=== PATIENT | female | born 1980 | race Caucasian/White ===

== ENCOUNTER 2025-06-28 11:22 | Day surgery (SDC) | payer OTHER, SELFPAY ==
--- NOTE | 2025-06-24 17:10 | EXP.HP ---
History of Present Illness *Admission Date: 06/28/25 *History of present illness: Mrs. Rao is a 44-year-old female who is here for diagnostic EGD. She has had nausea postprandially with loss of appetite. She also has heartburn and reflux daily and is on omeprazole. She has been followed previously with Dr. Polly Stover MD ([facility]) and Dr. Guille Valencia (colorectal surgery). She had seen me about 20 years ago. The patient does state that she had acute appendicitis in 2020 and at time of surgery, she had colonic ischemia/necrosis and bowel and underwent subtotal colectomy. She initially had diarrhea but now she reports constipation and bloating. She did have a CT scan at [facility] which showed retained stool. The examination is deemed medically necessary for diagnostic EGD. The patient has been seen, interviewed and examined prior to the procedure by both myself and the anesthesia provider. [facility] Disclaimer: The information contained in this section may have been updated after the patient was seen, as this information can be updated by other users. Medical History TMJ (dislocation of temporomandibular joint) High blood pressure Surgical History History of jaw surgery History of partial colectomy History of appendectomy Family History Grandfather No problems noted. Father Cancer Social History (Updated 06/28/25 @ 12:09 by Linda Sims CRNA) Smoking Status: Never smoker alcohol intake: never substance use type: unknown current occupational status: other Travel in the last 8 weeks?: None Have you lived/traveled outside [place] in past 30 days?: No Contact w/someone who lives/traveled outside [place] past 30 days?: No Exposure to someone with infectious disease in past 14 days?: No Do you have a fever (greater than 100.4 F or 38 C)?: No Have you tested positive for COVID-19?: No Exposed to someone with COVID-19 in past 14 days?: No Do you have a sore throat?: No Do you have a cough?: No Do you have any weakness?: No Do you have any diarrhea?: No Are you experiencing any unusual bleeding?: No Do you have any muscle aches/pain?: No Do you have any abdominal pain?: No Are you experiencing loss of taste or smell?: No Review of Systems Review of Systems Review of systems (narrative): Negative *Cardiovascular Comments: Negative *Gastrointestinal Comments: Negative *Genitourinary Comments: Negative *Musculoskeletal Comments: Negative *Neurologic Comments: Negative Meds Home Medications and Allergies Home Medications ?Medication ?Instructions ?Recorded ?Confirmed ?Type Saccharomyces boulardii 250 mg 250 mg PO BID 06/08/25 06/08/25 History capsule (Daily Probiotic (S. boulardii)) cholecalciferol (vitamin D3) 10 20 mcg PO DAILY 06/08/25 06/08/25 History mcg (400 unit) capsule diclofenac sodium 75 mg 75 mg PO DAILY 06/08/25 06/08/25 History tablet,delayed release dicyclomine 10 mg capsule 10 mg PO ONCE PRN Diarrhea 06/08/25 06/08/25 History escitalopram oxalate 20 mg tablet 20 mg PO DAILY 06/08/25 06/08/25 History losartan 25 mg tablet 25 mg PO DAILY 06/08/25 06/08/25 History metoprolol succinate 50 mg 50 mg PO ONCE 06/08/25 06/08/25 History tablet,extended release 24 hr norgestimate 0.18 mg/0.215mg/0.25 1 tab PO DAILY 06/08/25 06/08/25 History mg-ethinyl estradiol 0.025 mg tablet ([id number]) omeprazole 40 mg capsule,delayed 40 mg PO DAILY 06/08/25 06/08/25 History release ondansetron HCl 8 mg tablet 8 mg PO BID 06/08/25 06/08/25 History ropinirole 0.5 mg tablet 0.5 mg PO HS 06/08/25 06/08/25 History triamterene 37.5 1 tab PO ONCE 06/08/25 06/08/25 History mg-hydrochlorothiazide 25 mg tablet ursodiol 250 mg tablet 250 mg PO BID 06/08/25 06/08/25 History New Prescriptions to Start Prescriptions: Allergies Allergy/AdvReac Type Severity Reaction Status Date / Time No Known Allergies Allergy Verified 06/28/25 11:40 Exam *Routine HEENT Exam Head: Present normocephalic Eye: Present EOMI and PERRL ENT: Present mucous membranes moist *Routine Neck Exam Neck: Present supple *Routine Respiratory Exam Respiratory: Present CTA bilaterally *Routine Cardiovascular Exam Cardiovascular: Present RRR *Routine Abdominal Exam Abdominal: Present soft and normoactive bowel sounds; Absent tenderness *Routine Rectal Exam Rectal:: deferred *Routine Genitalia Exam Genitalia:: deferred *Routine Extremities Exam Extremities: Absent cyanosis, clubbing or edema *Routine Skin Exam Skin: Present warm; Absent rash *Routine Neurological Exam Neurological: Present alert and oriented X3 Assessment and Plan *Assessment and plan (1) Loss of appetite: Status: Acute Category: Medical Code(s): R63.0 - Anorexia (2) Acid reflux: Status: Acute Category: Medical Code(s): K21.9 - Gastro-esophageal reflux disease without esophagitis (3) Nausea: Status: Acute Category: Medical Code(s): R11.0 - Nausea (4) Bloating: Status: Acute Category: Medical Code(s): R14.0 - Abdominal distension (gaseous) Plan A/P: 1. Nausea, loss of appetite, bloating and reflux is the preprocedural diagnosis. The patient will be anesthetized/sedated using MAC sedation. The patient has been seen and examined. Cardiac and lung assessment prior to the examination is stable. Proceed with planned diagnostic EGD.
--- NOTE | 2025-06-28 07:00 | P.PCN_ITS ---
[facility] Procedure Note Date: 06/28/25 Time: 12:48 Procedure Note:: Upper Endoscopy Procedure Report: Esophagogastroduodenoscopy with cold biopsies Endoscopost: Gael Greer II, MD Referring Physician: Vipin Bustamante MD Date of Procedure: June 28, 2025 Equipment: Olympus GIF-1100 standard upper endoscope Sedation: MAC sedation Indications: Mrs. Rao is a 44-year-old female who is here for diagnostic EGD. She has had nausea postprandially with loss of appetite. She also has h eartburn and reflux daily and is on omeprazole. The patient does report a moderate amount of fullness, early satiety, bloating, gassiness, nausea and some belching. She has been followed previously with Dr. Polly Stover MD ([facility]) and Dr. Guille Valencia (colorectal surgery). She had seen me about 20 years ago. The patient does state that she had acute appendicitis in 2020 and at time of surgery, she had colonic ischemia/necrosis and bowel and underwent subtotal colectomy. She initially had diarrhea but now she reports constipation and bloating. She did have a CT scan at [facility] which showed retained stool. The examination is deemed medically necessary for diagnostic EGD. Procedure: Prior to the procedure, a history and physical exam was performed, and patient's medications and allergies were reviewed. The risks, benefits and alternatives of the sedation and procedure were discussed with the patient. All questions were answered and informed consent was obtained. The patient was brought to the procedure room. Patient identification and proposed procedure were verified by the physician and the nurse. The patient was placed in a left lateral decubitus position and the scope was passed under direct vision. Throughout the procedure, the patient's blood pressure, pulse, and oxygen saturations were monitored continuously. The upper GI endoscopy was accomplished without difficulty. The patient tolerated the procedure well. Findings: The scope was passed directly into the upper esophagus and advanced to the third portion of the duodenum. The post bulbar duodenum, ampulla and duodenal bulb were normal with normal mucosa and conniventes. There is mild duodenal lymphoid stasis. Cold biopsies were taken x 2 of the third portion of the duodenum for the disaccharidase assay. The scope was withdrawn through a normal duodenal bulb and pylorus into the stomach. There was bile reflux with mild linear reactive gastropathy of the antrum. The body and fundus of the stomach were normal. Upon retroflexion there was a small 2 cm hiatal hernia. Cold biopsies were taken from the antrum. The scope was then withdrawn into the esophagus. There was no evidence of reflux esophagitis or Mccabe's. There were tertiary contractions and evidence of mild esophageal dysmotility. The remainder of the esophageal mucosa was normal. Impression: 1. Nonerosive GERD with mild esophageal dysmotility and small 2 cm hiatal hernia 2. Bile reflux with mild linear reactive gastropathy of antrum Plan: I will follow-up the biopsies and discuss the findings with the patient and family. She does have gas driven bile reflux and this is related to her obstipation/incomplete defecation. She primarily has outlet dysfunction constipation and would benefit from pelvic floor physical therapy. We will discuss treatment options.
[2025-06-28 11:52] VITALS: BP 134/96; PULSE 69; RESP 18; TEMP 36.5; O2SAT 98; BMI 31.0
[2025-06-28] MEDS: LACTATED RINGERS 1000ML 1,000 ML 50 ML IV (12:05)
--- NOTE | 2025-06-28 12:08 | EXP.ANES.CKL ---
[facility] Disclaimer: The information contained in this section may have been updated after the patient was seen, as this information can be updated by other users. Medical History TMJ (dislocation of temporomandibular joint) High blood pressure Surgical History History of jaw surgery History of partial colectomy History of appendectomy Family History Grandfather No problems noted. Father Cancer Social History Smoking Status: Never smoker alcohol intake: never substance use type: unknown current occupational status: other Travel in the last 8 weeks?: None [facility] Anesthesia Checklist Patient Identification Patient Identification: Arm Band and Verbal (Name & ) Structural Data Admitted From: Home Planned Operative Procedure/s: EGD Consent for Planned Operative Procedure(s) Verified: Yes Verified Documents: Surgical Consent and History and Physical NPO Status Verified Time NPO: 00:00 Additional verifications Anesthesia Reactions: No Previous Colonoscopy: Yes Airway Assessment Mallampati Score:: Class II Dentition: Good Dentition Neurological Assessment Level of Consciousness: Awake, Alert and Appropriate Anesthesia Plan Anesthesia Risk discussed: Yes Anesthesia Plan: Verified ASA Class: II Anesthesia Type: MAC
[2025-06-28 12:32] LABS: HCG Qualitative, Serum Negative (Negative)
[2025-06-28 12:53] VITALS: BP 118/75; PULSE 59; RESP 18; TEMP 36.4; O2SAT 97
[2025-06-28 13:03] VITALS: BP 131/84; PULSE 58; O2SAT 96
[2025-06-28 13:13] VITALS: BP 132/84; PULSE 56; O2SAT 97
[2025-06-28 13:23] VITALS: BP 134/86; PULSE 60; O2SAT 95
[2025-07-01 14:17] LABS: Interpretation Notes (.); Lactase 48.89 (>/= 14.0); Maltase 217.94 (>/= 110.0); Palatinase 15.09 (>/= 8.5); Reference Notes (.); Sucrase 53.12 (>/= 25.0)
== END 2025-06-28 13:23 | disposition home or self-care (01) ==
PROVIDERS: PCP Family Medicine; Visit Provider Internal Medicine Gastroenterology
PROC: 0DJ08ZZ Inspection of Upper Intestinal Tract, Via Natural or Artificial Opening Endoscopic (ICD-10-PCS; CPT 43239; principal; 2025-06-28 13:00)
DX: K21.9 Gastro-esophageal reflux disease without esophagitis (principal); K22.4 Dyskinesia of esophagus; K44.9 Diaphragmatic hernia without obstruction or gangrene; K31.89 Other diseases of stomach and duodenum; K59.00 Constipation, unspecified; I10 Essential (primary) hypertension; Z90.49 Acquired absence of other specified parts of digestive tract
CPT/HCPCS: 43239; 82657; 84703; J2003; J2704; J7120